=== PATIENT | male | born 1995 | race Caucasian/White ===

== ENCOUNTER 2020-06-07 22:06 | Emergency (ER) | payer SELFPAY ==
[~2020-06-07] VITALS: Ht 195.6 cm; Wt 108.9 kg
[2020-06-07 22:23] VITALS: BP 127/80
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
== END 2020-06-07 22:32 | disposition home or self-care (01) ==
LOC: ER 22:10
DX: S61.323A Laceration with foreign body of left middle finger with damage to nail, initial encounter (principal); W26.8XXA Contact with other sharp object(s), not elsewhere classified, initial encounter; Y92.59 Other trade areas as the place of occurrence of the external cause; Y99.0 Civilian activity done for income or pay